=== PATIENT | male | born 1965 | race Caucasian/White ===

== ENCOUNTER 2021-08-07 16:50 | Emergency (ER) | payer OTHER ==
[2021-08-07 17:02] VITALS: BP 140/86
[2021-08-07] MEDS ORDERED: BUPIVACAINE 0.5% PF 10 ML VIAL SUBQ STA (17:25)
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
--- NOTE | 2021-08-07 18:23 | XRAY Report ---
PROCEDURE: Hand 3 View RT INDICATIONS: 5th digit deformity TECHNIQUE: 4 views of the hand(s) acquired. COMPARISON: None. FINDINGS: Bones: Osseous fragment at the fifth digit PIP joint. No dislocations. No suspicious bony lesions. Soft tissues: No suspicious soft tissue calcifications. IMPRESSION: Suspect corner fracture at the fifth digit PIP joint. Reviewed by: Kyle Willis MD on 08/07/2021 5:22 PM [facility] Approved by: Kyle Willis MD on 08/07/2021 5:22 PM [facility] Station ID: [id number]
== END 2021-08-07 19:10 | disposition home or self-care (01) ==
LOC: ED 16:50
DX: S63.289A Dislocation of proximal interphalangeal joint of unspecified finger, initial encounter (principal); X58.XXXA Exposure to other specified factors, initial encounter; Y93.55 Activity, bike riding
CPT/HCPCS: 99282

== ENCOUNTER 2021-08-23 10:15 | Outpatient (CLI) | payer OTHER ==
--- NOTE | 2021-08-23 16:23 | XRAY Report ---
PROCEDURE: Hand 3 View RT INDICATIONS: RIGHT HAND PAIN TECHNIQUE: 3 views of the hand(s) acquired. COMPARISON: None FINDINGS: Bones: No dislocation. Fracture involving the head of the fifth proximal phalange and small avulsion fracture involving the base of the fifth middle phalange. Soft tissues: No suspicious soft tissue calcifications. IMPRESSION: Fifth proximal phalange and middle phalange fractures. Reviewed by: Abimbola Dobbs MD, PhD on 08/23/2021 4:21 PM PDT Approved by: Abimbola Dobbs MD, PhD on 08/23/2021 4:21 PM PDT Station ID: [id number]
== END 2021-08-23 23:59 | disposition home or self-care (01) ==
LOC: DI.WOS 10:15
PROVIDERS: ATTEND Orthopaedic Surgery
DX: S62.656A Nondisplaced fracture of middle phalanx of right little finger, initial encounter for closed fracture (principal)

== ENCOUNTER 2021-09-27 07:45 | Outpatient (CLI) | payer OTHER ==
--- NOTE | 2021-09-27 09:24 | XRAY Report ---
PROCEDURE: Hand 3 View RT INDICATIONS: 5TH PIP DISLOCATION TECHNIQUE: 3 views of the hand(s) acquired. COMPARISON: 08/23/2021 FINDINGS: Bones: Avulsion fractures involving the base of the fifth middle phalanx demonstrates further displac ement of the fragment versus callus formation when compared to the prior x-ray.. No suspicious bony lesions. Soft tissues: No suspicious soft tissue calcifications. IMPRESSION: Avulsion fracture of the base of the middle phalanx of the little finger demonstrates fu rther displacement of the avulsed fragment versus callus formation. Reviewed by: Lance Villeda on 09/27/2021 9:23 AM PDT Approved by: Lance Villeda on 09/27/2021 9:23 AM PDT Station ID: [id number]
== END 2021-09-27 23:59 | disposition home or self-care (01) ==
LOC: DI.WOS 07:45
PROVIDERS: ATTEND Orthopaedic Surgery
DX: S62.626A Displaced fracture of middle phalanx of right little finger, initial encounter for closed fracture (principal)

== ENCOUNTER 2022-11-30 08:51 | Outpatient (CLI) | payer OTHER ==
--- NOTE | 2022-11-30 09:30 | Sleep Patient Instructions ---
Sleep Center Visit Summary - Patient Visit Information Reason for Visit: Initial consult for evaluation of sleep disordered breathing and other sleep issues. - Patient Instructions Instructions Attached: Sleep Study, Sleep Clinic Visit, Sleep Study Home Monitor Additional Instructions: You will be completing a sleep study, either an in-lab polysomnography (PSG) or home sleep study (HST). You will follow-up in the sleep care office after the sleep study is completed to hear the results and talk about therapy, if needed. You will be called by our office staff to schedule this appointment, but you may contact us with any questions. - Clinic Information Contact: [facility] [address] [place] [address] [email or web address] T: [phone]
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
[2022-11-30 09:34] VITALS: BP 126/74
== END 2022-11-30 08:52 | disposition home or self-care (01) ==
LOC: SC 08:51
PROVIDERS: ATTEND Nurse Practitioner Family
DX: R06.83 Snoring (principal); G47.8 Other sleep disorders; G47.10 Hypersomnia, unspecified; R53.83 Other fatigue; F32.A Depression, unspecified; E66.3 Overweight; Z68.27 Body mass index [BMI] 27.0-27.9, adult
CPT/HCPCS: 99203; 99212

== ENCOUNTER 2023-01-12 08:23 | Outpatient (CLI) | payer OTHER | END 2023-01-12 08:24 | disposition home or self-care (01) | LOC: SC 08:23 | PROVIDERS: ATTEND Nurse Practitioner Family | DX: R06.83 Snoring (principal); R09.02 Hypoxemia; R00.0 Tachycardia, unspecified | CPT/HCPCS: 95806 ==

== ENCOUNTER 2023-02-02 08:59 | Outpatient (CLI) | payer OTHER ==
--- NOTE | 2023-02-02 09:30 | Sleep Patient Instructions ---
Sleep Center Visit Summary - Patient Visit Information Reason for Visit: Sleep study follow-up - Patient Instructions Instructions Attached: Sleep Study, Sleep Clinic Visit Additional Instructions: You will be completing a sleep study, in-lab polysomnography (PSG). You will follow-up in the sleep care office after the sleep study is completed to hear the results and talk about therapy, if needed. You will be called by our office staff to schedule this appointment, but you may contact us with any questions. - Clinic Information Contact: [facility] [address] [place] [address] [email or web address] T: [phone]
--- NOTE | 2023-02-02 09:33 | SLEEP CARE CONSULTATION ---
Information from patient questionnaire entered by Evon Sarmiento. I have reviewed and concur with the information entered by Evon Sarmiento. This document represents the service I personally performed and the decisions made by , Fatoumata Wang ARNP. History of Present Illness Service Date and Time: 02/02/2023 0859 Initial [place] Sleepiness Scale score: 9 (11/30/22) Current [place] Sleepiness Scale score: 12 (02/02/23) Additional HPI information: MIKA BYRD returns for follow up and results of the recently performed home sleep study. The patient was informed of the following findings: No significant sleep disordered breathing with an average AHI of 2.1 and lourdes oxygen saturation of 73. There was no supine sleep and tachycardia was noted during the study. I explained the pathophysiology behind obstructive sleep apnea. Patient does not have sleep apnea and was advised how weight gain could increase the risk of developing sleep apnea in the future. Patient does not drink alcohol. Patient was cautioned about risks of drowsy driving until sleepiness symptoms resolve. Sleep Study - Results Type of Sleep Study: Home sleep study (COMPLETED 01/12/23) Prior sleep studies: No Polysomnography/Home Sleep Study results: Physician Impression: The quality of the study is good. The length of the study is adequate (> 240 minutes). Please also see the tabulated and graphic data. 1. No significant sleep disordered breathing, with an AHI of 2.1/hr and lourdes SaO2 of 73%. During the study, the patient had 3 apneas (3 obstructive, 0 central, 0 mixed) and 8 hypopneas. The longest episode lasted 58.5 seconds. The patient did not sleep supine during this study (supine AHI was 0.0 and non-supine, 2.10). 2. Hypoxemia (ICD-10 R09.02), mild, with the lowest oxygen saturation of 73 % and 2.3 minutes with SaO2 under 90%. Baseline oxygen saturation was normal (Average oxygen saturation was 93%). 3. Tachycardia, with maximum recorded heart rate of 142 beats per minute. Allergies and Home Medications Known drug allergies: No (as listed) Drug allergies reviewed: Yes Home medication list reviewed: Yes (no changes) Allergy and home medication list: Allergies egg Allergy (Verified 02/01/23 16:10) Unknown salmon oil Allergy (Verified 02/01/23 16:10) Emesis Review of Systems Review of systems same as previous: Yes (no changes) Physical Exam Vital signs obtained and entered by: EVON Long MA Blood Pressure: 124/76 (LEFT ARM) Cuff size: regular Heart Rate: 79 O2 Saturation: 96 Height: 5 ft 8 in Weight: 184 lb Body Mass Index: 27.9 BMI Classification: Overweight Impression and Plan 1. Suspected Obstructive Sleep Apnea-Hypopnea Syndrome, as suggested by a histo ry of loud and irregular snoring, frequent awakening during the night, unrefreshed sleep, and excessive daytime sleepiness. His HST was completed and showed no significant sleep disordered breathing but there was no supine sleep, mild hypoxemia and tachycardia. I think patient's symptoms warrant further evaluation. I recommend proceeding to polysomnography to confirm the diagnosis and to assess severity. I obtained agreement to proceed. The pathophysiology of obstructive sleep apnea-hypopnea syndrome was discussed with the patient and health risks of cardiovascular and cerebrovascular disease if not treated. Risks of drowsy driving discussed in detail and patient advised to avoid long distance driving and to rib puller at the first sign of drowsiness. Patient agreed to plan. 2. Hypoxemia, mild, with a lourdes oxygen saturation of 73% and 2.3 minutes spent under 90%. His baseline oxygen saturation was normal with an average oxygen saturation of 93%. 3. Tachycardia. Elevated heart rate noted during sleep study with beats per minute up to 142. Patient encouraged to follow-up with primary care doctor for further evaluation. * Schedule polysomnography. * Followup with PCP for further evaluation of tachycardia * Avoid long distance driving or driving when feeling sleepy. * Attempt to lose weight. * Review instructions provided by trained office staff on how to prepare for the sleep study. * Return for follow-up after sleep study completed. Counseling Topics: Weight loss health impact Visit Type: In Office Time Spent with Patient (minutes): 20 Provider Statement: I spent 100% of the Face to Face Visit with the patient with greater than 50% spent counseling the patient and coordination of care.
[2023-02-02 09:37] VITALS: BP 124/76; O2SAT 96
== END 2023-02-02 09:00 | disposition home or self-care (01) ==
LOC: SC 08:59
PROVIDERS: ATTEND Nurse Practitioner Family
DX: R06.83 Snoring (principal); G47.8 Other sleep disorders; G47.10 Hypersomnia, unspecified; R53.83 Other fatigue; R09.02 Hypoxemia; R00.0 Tachycardia, unspecified; E66.3 Overweight; Z68.37 Body mass index [BMI] 37.0-37.9, adult
CPT/HCPCS: 99212; 99213

== ENCOUNTER 2023-03-16 12:44 | Outpatient (CLI) | payer OTHER ==
--- NOTE | 2023-03-16 13:12 | Sleep Patient Instructions ---
Sleep Center Visit Summary - Patient Visit Information Reason for Visit: Sleep study follow-up - Patient Instructions Instructions Attached: CPAP, CPAP Dc Additional Instructions: You are being started on CPAP therapy with pressure setting at 4-15 cmH2O. You will need to call the sleep care office to set up your follow up once you have your APAP machine and we will schedule a visit to check compliance and response to therapy at that time. You may call the office with any concerns about pressure feeling too low or too much for adjustment, if needed. You should contact DME supplier for any questions or concerns about mask or equipment. Please call office to schedule a follow up appointment in the sleep care office one month after obtaining new device. - Clinic Information Contact: [facility] [address] [place] [address] [email or web address] T: [phone]
--- NOTE | 2023-03-16 13:15 | SLEEP CARE CONSULTATION ---
Information from patient questionnaire entered by Evon Sarmiento. I have reviewed and concur with the information entered by Evon Sarmiento. This document represents the service I personally performed and the decisions made by me, Fatoumata Wang ARNP. History of Present Illness Service Date and Time: 03/16/2023 1244 Initial [place] Sleepiness Scale score: 9 (11/30/22) Current [place] Sleepiness Scale score: 14 (03/16/23) Additional HPI information: MIKA FRIEND returns for follow up and results of the recently performed polysomnography. The sleep study showed mild obstructive sleep apnea with an average AHI of 7.8 and [place]our[place] oxygen saturation of 84%. I explained the pathophysiology behind obstructive sleep apnea. We then spent quite a bit of time discussing different treatment options. For mild obstructive sleep apnea, surgery and oral appliance are alternatives to nasal CPAP therapy but in moderate or severe cases, nasal CPAP is the most effective and reliable treatment. Because apnea is primarily in supine position, then positional management therapy could be effective. Methods discussed such as positioning with pillows, using a T-shirt with tennis balls in the back or commercial products that have a pillow format on back to prevent supine sleep. I reviewed the impact of weight changes on sleep apnea and strongly recommended losing weight. After some discussion, the patient opted to go with the nasal CPAP therapy. Nasal autoCPAP set at 4-15 cmH20 will be ordered with rationale explained. A manual titration study will be ordered if unable to find optimal pressure with office adjustments. I explained how CPAP machine works and what to expect when using the machine. Using CPAP every night in order to get used to it was emphasized. Patient advised to put CPAP mask on before getting into bed so as not to fall asleep without CPAP. To assist acclimation to CPAP use, it could also be used for a short time during day while reading or watching TV. The patient was instructed to call the CPAP supplier to discuss any mechanical problem that may occur. If the mask given is uncomfortable or is difficult to keep on through the night even with adjustment, contact the CPAP supplier as many will replace with another mask style if notified before 30 days. If snoring or perceives is not getting enough air or too much air from the machine, notify this office. Patient does not drink alcohol. Patient was cautioned about risks of drowsy driving until sleepiness symptoms resolve. Patient denies drowsy driving. Sleep Study - Results Type of Sleep Study: Polysomnography (COMPLETED 02/14/23) Prior sleep studies: No Polysomnography/Home Sleep Study results: IMPRESSION: The quality of the study is good. The patient had slightly reduced sleep efficiency due to prolonged awakening in the middle of the night. The sleep architecture was abnormal for sleep fragmentation and reduced amount of time spent in slow wave sleep (N3). Respiratory monitoring showed mild obstructive sleep apneahypopnea (AHI = 7.8) associated with frequent arousals, oxyhemoglobin desaturation and mild hypoxia (lourdes oxygen saturation of 84%). The respiratory events occurred predominantly during supine sleep (supine AHI = 13.7; non-supine = 2.39). Snore was light to moderate in intensity. There was no significant periodic leg movement of sleep. Cardiac rhythm was normal sinus rhythm without significant arrhythmia. No abnormal behavior (parasomnia) observed during the night. Allergies and Home Medications Known drug allergies: No Drug allergies reviewed: Yes Home medication list reviewed: Yes (Mucinex) Allergy and home medication list: Allergies egg Allergy (Verified 03/15/23 09:44) Unknown salmon oil Allergy (Verified 03/15/23 09:44) Emesis Review of Systems Review of systems same as previous: Yes (NO CHANGE ) Physical Exam Vital signs obtained and entered by: EVON Long MA Blood Pressure: 122/70 (LEFT ARM) Cuff size: regular Heart Rate: 73 O2 Saturation: 96 Height: 5 ft 8 in Weight: 191 lb 6.4 oz Body Mass Index: 29.0 BMI Classification: Overweight Impression and Plan 1. Obstructive Sleep Apnea-Hypopnea Syndrome, mild, with lowest oxygen saturation of 84%. Obviously this is the cause of the patients symptoms of unrefreshed sleep, and excessive daytime sleepiness. Positive pressure therapy could benefit anxiety, depression, gastric reflux and attention deficit. As mentioned above, the patient will be started on nasal autoCPAP therapy with pressure set at 4-15 cmH2O. A manual titration study will be completed if unable to find optimal treatment pressure with office adjustments. Compliance guidelines also reviewed. A copy of compliance guidelines will be given for reference at check out. Because the apnea is more severe supine, I instructed to avoid sleeping supine using pillow positioning until able to start CPAP use. 2. Hypoxemia, mild, with a lourdes oxygen saturation of 84% and 8 minutes spent under 90%. His baseline oxygen saturation was normal with an average oxygen saturation of 92%. 2. Overweight, unspecified. Currently patients BMI is 29. Obesity increases the risk of apnea, CPAP pressure requirements and overall health risks especially cardiovascular and diabetes. Thus patient is advised to lose weight. * Nasal auto CPAP therapy, pressure at 4-15 cm H2O. * Attempt to lose weight. * Avoid alcohol consumption near bedtime. * Avoid supine sleep until using CPAP. * The patient is again cautioned about driving until sleepiness completely resolves. * Return one month after CPAP obtained. I will assess response to therapy and compliance at that time. Counseling Topics: Weight loss health impact Prescriptions: Auto CPAP Visit Type: In Office Time Spent with Patient (minutes): 20 Provider Statement: I spent 100% of the Face to Face Visit with the patient with greater than 50% spent counseling the patient and coordination of care.
[2023-03-16 14:02] VITALS: BP 122/70; O2SAT 96
== END 2023-03-16 12:45 | disposition home or self-care (01) ==
LOC: SC 12:44
PROVIDERS: ATTEND Nurse Practitioner Family
DX: G47.33 Obstructive sleep apnea (adult) (pediatric) (principal); R09.02 Hypoxemia; E66.3 Overweight; Z68.29 Body mass index [BMI] 29.0-29.9, adult
CPT/HCPCS: 99212; 99213

== ENCOUNTER 2023-07-11 09:18 | Outpatient (CLI) | payer OTHER ==
--- NOTE | 2023-07-11 09:47 | Sleep Patient Instructions ---
Sleep Center Visit Summary - Patient Visit Information Reason for Visit: 4-month follow-up - Patient Instructions Additional Instructions: You were here for follow up of CPAP therapy. You will be continued on CPAP therapy with pressure at 4-8 cmH2O. You should follow up with sleep care in 3 months. You may contact us sooner for any questions or concerns. - Clinic Information Contact: [facility] [address] [place] [address] [email or web address] T: [phone]
--- NOTE | 2023-07-11 09:53 | SLEEP CARE CONSULTATION ---
Information from patient questionnaire entered by Evon Sarmiento. I have reviewed and concur with the information entered by Evon Sarmiento. This document represents the service I personally performed and the decisions made by , Fatoumata Wang ARNP. History of Present Illness Service Date and Time: 07/11/2023917 Previous diagnosis: Mild, Obstructive Sleep Apnea-Hypopnea Syndrome AHI: 7.8 (02/14/2023) Reason for follow up: other (4 MONTH F/U) Equipment type: CPAP (RESMED Airsense 11; CPAP NEED MACHINE) Equipment obtained from: Other (getting supplies on own; owns his machine) Mask style: Full face Mask brand: [employer] Backup mask available: Yes (other mask) Prior sleep studies: No Type of Sleep Study: Polysomnography (COMPLETED 02/14/23) HPI additional information: MIKA BYRD was diagnosed to have mild, AHI 7.8, obstructive sleep apnea- hypopnea syndrome and returned today for CPAP therapy four month follow-up. Sleep Study - Results Type of Sleep Study: Polysomnography (COMPLETED 02/14/23) Prior sleep studies: No CPAP Compliance Data - Data Reviewed with Patient Average duration of nightly device use: 2 hours 20 minutes Compliance rate %: 10 (67/ days used) Current pressure setting (cmH2O): 4-8 Humidity settin Average residual AHI: 5.1 Central apnea: 1.3 Obstructive apnea: 2.5 Hypopnea: 1.1 Average large leak: 6.3 L/min Subjective Missed days of use due to: reports: mask issues, illness, travel Patient concerns: reports: mask discomfort, mask leak noise, other (sore nose occasionally). denies: aerophagia, air blowing in eyes, condensation in mask/hose, nasal congestion, dry mouth, nose, throat, epistaxis Observed to snore while using device: No Current pressure setting perceived as: comfortable On therapy, patient: reports: sleeping better, awakening more refreshed, being more awake and alert during the day, more rested overall. denies: drowsiness while driving Initial [place] Sleepiness Scale score: 9 (11/30/22) Current [place] Sleepiness Scale score: 10 Allergies and Home Medications Known drug allergies: No (allergies as listed) Drug allergies reviewed: Yes Home medication list reviewed: Yes (Mucinex, NAC) Allergy and home medication list: Allergies egg Allergy (Verified 07/07/23 09:28) Unknown salmon oil Allergy (Verified 07/07/23 09:28) Emesis Review of Systems Review of systems same as previous: Yes (no changes) Physical Exam Vital signs obtained and entered by: FATOUMATA PATTERSON Blood Pressure: 120/85 Cuff size: regular (right arm) Heart Rate: 90 O2 Saturation: 96 Height: 5 ft 8 in Weight: 190 lb Body Mass Index: 28.8 BMI Classification: Overweight Impression and Plan 1. Obstructive Sleep Apnea-Hypopnea Syndrome, mild, with poor treatment compliance and good apnea control with minimal elevation of residual AHI. On CPAP therapy, the patient has better sleep quality and is more rested overall. He has significant improvement of his sleep apnea although it is slightly ineffective. He is comfortable with the current pressures. Goals for apnea control discussed. He would like to wait for further adjustments until he gets a better fitting mask and is keeping the mask on for longer periods of time at night. He bought his machine so he is not concerned about compliance. He wants t o use his machine all night and is working on mask fit and choice. I showed him a couple other mask options for full face mask that he is going to check out, [employer] Airfit F30i and [employer] Dreamwear. Patient's apnea severity and rationale for treatment to reduce apnea, improve sleep quality and reduce cardiovascular and cerebrovascular events was reviewed. I also reviewed the benefit of consistent device use of CPAP for gastric reflux, depression, anxiety and attention deficit. 2. Overweight, unspecified. Currently patients BMI is 28.8. Obesity increases the risk of apnea, CPAP pressure requirements and overall health risks especially cardiovascular and diabetes. Thus patient is advised to lose weight. * Continue auto CPAP pressure at 4-8 cmH2O * Notify me if snoring with mask or feeling that the pressure is too much or too little * Attempt to lose weight * Call this office if any problems using CPAP * Return for follow up in 3 months, or sooner if concerns arise Counseling Topics: Spare mask, Weight loss health impact Follow up with Sleep Care in: 3 months Visit Type: In Office Time Spent with Patient (minutes): 30 Provider Statement: I spent 100% of the Face to Face Visit with the patient with greater than 50% spent counseling the patient and coordination of care.
[2023-07-11 09:57] VITALS: BP 120/85; O2SAT 96
== END 2023-07-11 09:19 | disposition home or self-care (01) ==
LOC: SC 09:18
PROVIDERS: ATTEND Nurse Practitioner Family
DX: G47.33 Obstructive sleep apnea (adult) (pediatric) (principal); E66.3 Overweight; Z68.28 Body mass index [BMI] 28.0-28.9, adult
CPT/HCPCS: 99212; 99213

== ENCOUNTER 2023-10-10 09:11 | Outpatient (CLI) | payer OTHER ==
--- NOTE | 2023-10-10 09:38 | Sleep Patient Instructions ---
Sleep Center Visit Summary - Patient Visit Information Reason for Visit: 3-month follow-up - Patient Instructions Additional Instructions: You were here for follow up of CPAP therapy. You will be continued on CPAP therapy with pressure at 6-12 cmH2O. You should follow up with sleep care in 12 months or as needed. You may contact us sooner for any questions or concerns. - Clinic Information Contact: [facility] [address] [place] [id number] [email or web address] T: [phone]
--- NOTE | 2023-10-10 09:42 | SLEEP CARE CONSULTATION ---
Information from patient questionnaire entered by Evon Sarmiento. I have reviewed and concur with the information entered by Evon Sarmiento. This document represents the service I personally performed and the decisions made by , Fatoumata Wang ARNP. History of Present Illness Service Date and Time: 10/10/2023910 Previous diagnosis: Mild, Obstructive Sleep Apnea-Hypopnea Syndrome AHI: 7.8 Reason for follow up: three month (F/U) Equipment type: CPAP (RESMED Airsense 11, NEED MACHINE) Mask style: Full face (possible Dreamwear) Backup mask available: Yes Prior sleep studies: No Type of Sleep Study: Polysomnography (COMPLETED 02/14/23) HPI additional information: MIKA BYRD was diagnosed to have mild, AHI 7.8, obstructive sleep apnea- hypopnea syndrome and returned today for CPAP therapy three month follow-up. Sleep Study - Results Type of Sleep Study: Polysomnography (COMPLETED 02/14/23) Prior sleep studies: No CPAP Compliance Data - Data Reviewed with Patient Average duration of nightly device use: 1 hour 58 mins Compliance rate %: 1 ( days used) Current pressure setting (cmH2O): 6-12 Average residual AHI: 5.6 Central apnea: 1.2 Obstructive apnea: 2.9 Hypopnea: 1.5 Average large leak: 2.7 L/min Subjective Missed days of use due to: reports: mask issues (pulling off), other (PTSD) Patient concerns: denies: aerophagia, mask discomfort, air blowing in eyes, mask leak noise, condensation in mask/hose, nasal congestion, dry mouth, nose, throat, epistaxis Observed to snore while using device: No Current pressure setting perceived as: comfortable On therapy, patient: reports: sleeping better, more rested overall. denies: drowsiness while driving Initial [place] Sleepiness Scale score: 9 (11/30/22) Current [place] Sleepiness Scale score: 7 (10/10/23) Allergies and Home Medications Known drug allergies: No (as listed) Drug allergies reviewed: Yes Home medication list reviewed: Yes (no changes) Allergy and home medication list: Allergies egg Allergy (Verified 10/05/23 10:00) Unknown salmon oil Allergy (Verified 10/05/23 10:00) Emesis Review of Systems Review of systems same as previous: No (PTSD) Physical Exam Vital signs obtained and entered by: EVON Long MA Blood Pressure: 141/81 (RIGHT ARM) Cuff size: regular Heart Rate: 65 O2 Saturation: 97 Height: 5 ft 8 in Weight: 192 lb 6.4 oz Body Mass Index: 29.2 BMI Classification: Overweight Impression and Plan 1. Obstructive Sleep Apnea-Hypopnea Syndrome, mild, with fair treatment compliance and fair apnea control with minimal elevation of residual AHI. On CPAP therapy, the patient has better sleep quality and is more rested overall. He been diagnosed with PTSD and has been "ripping" mask off after laying down to sleep. His pressure setting has significantly reduced his AHI but is still minimally ineffective. He feels the pressure is comfortable and would like to keep pressure same while is trying to get to using his machine more. He is retiring and moving away from [place]. He will establish with sleep provider there for further adjustments and monitoring of his CPAP therapy. Patient's apnea severity and rationale for treatment to reduce apnea, improve sleep quality and reduce cardiovascular and cerebrovascular events was reviewed. I also reviewed the benefit of consistent device use of CPAP for gastric reflux, depression/anxiety, attention deficit. 2. Overweight, unspecified. Currently patients BMI is 29.2. Obesity increases the risk of apnea, CPAP pressure requirements and overall health risks sage cially cardiovascular and diabetes. Thus patient is advised to lose weight. * Continue auto CPAP pressure at 6-12 cmH2O * Notify me if snoring with mask or feeling that the pressure is too much or too little * Attempt to lose weight * Call this office if any problems using CPAP * Return for follow up in one year or as needed, or sooner if concerns arise Counseling Topics: Spare mask, Weight loss health impact Follow up with Sleep Care in: 1 year (or as needed in new area) Visit Type: In Office Time Spent with Patient (minutes): 22 Provider Statement: I spent 100% of the Face to Face Visit with the patient with greater than 50% spent counseling the patient and coordination of care.
[2023-10-10 09:44] VITALS: BP 141/81; O2SAT 97
== END 2023-10-10 09:12 | disposition home or self-care (01) ==
LOC: SC 09:11
PROVIDERS: ATTEND Nurse Practitioner Family
DX: G47.33 Obstructive sleep apnea (adult) (pediatric) (principal); E66.3 Overweight; Z68.29 Body mass index [BMI] 29.0-29.9, adult
CPT/HCPCS: 99212; 99213